=== PATIENT | female | born 1995 | race Caucasian/White ===

== ENCOUNTER 2020-07-15 20:10 | Emergency (ER) | payer OTHER, MEDICAID, SELFPAY ==
[2020-07-15 21:00] VITALS: BP 113/80; PULSE 78; RESP 18; TEMP 36.5; O2SAT 100
[2020-07-15 21:16] VITALS: BP 118/72; PULSE 72; RESP 18; TEMP 36.6; O2SAT 99
--- NOTE | 2020-07-15 21:52 | ED.DENTAL ---
HPI - Dental/Oral General Chief complaint: Dental/Oral Stated complaint: swollen face Time Seen by Provider: 07/15/20 21:52 Source: patient Mode of arrival: ambulatory Limitations: no limitations History of Present Illness HPI Narrative: Patient is a 25-year-old female who presents for evaluation of right-sided tooth pain. Pain is dull, aching in nature traveling into her right cheek. No associated redness or swelling. She struggles with numerous dental caries, states she is not from the area but has had pain over the past 3 days. Denies current fever or chills. She is able to swallow. Denies any neck pain or swelling. Related Data Allergies Allergy/AdvReac Type Severity Reaction Status Date / Time cephalexin Allergy Severe Anaphylaxis Verified 07/15/20 21:26 dicyclomine [From Bentyl] Allergy Rash Verified 07/15/20 21:26 ibuprofen Allergy Anaphylaxis Verified 07/15/20 21:26 ketorolac [From Toradol] Allergy Hives Verified 07/15/20 21:26 latex Allergy Rash Verified 07/15/20 21:26 tramadol Allergy Hives Verified 07/15/20 21:26 Review of Systems Review of Systems: Narrative: CONSTITUTIONAL: Denies fever CARDIOVASCULAR: Denies chest pain RESPIRATORY: Denies cough or dyspnea. GASTROINTESTINAL: Denies abdominal pain SKIN: Denies rash MUSCULOSKELETAL: Denies back pain NEUROLOGIC: Denies headache PMFSH Past Medical History Medical History (Updated 07/15/20 @ 22:43 by Theresa Ferrer MD) No pertinent past medical history Surgical History Surgical History (Updated 07/15/20 @ 22:43 by Theresa Ferrer MD) H/O: hysterectomy Social History Social History (Updated 07/15/20 @ 22:43 by Theresa Ferrer MD) Smoking status: Current every day smoker Tobacco type: cigarettes Alcohol intake: current Substance use: former Living arrangements: with family Gender identity (if verbalized by the patient): Female Exam Narrative: Exam Narrative: GENERAL: Awake, alert, conversant HEAD: Normocephalic, atraumatic. EYES: PERRLA and EOMI. ENT: Nares clear, no rhinorrhea or epistaxis. Mucous membranes moist. Numerous dental caries. No trismus. Uvula is midline. No abscess identified. Gingiva are not bleeding. Mild gingival edema. No evidence of necrosis. NECK: Supple. No neck edema. CHEST: No respiratory distress, breathing even and non labored HEART: Regular rate, sinus rhythm ABDOMEN:Non distended, non tender EXTREMITIES: Normal range of motion. No edema. SKIN: Warm, dry, no rash. NEURO:No focal deficits. Alert and oriented x3 Course Vital Signs Vital signs: Vital Signs Temperature 36.5 C 07/15/20 21:00 Pulse Rate 78 07/15/20 21:00 Respiratory Rate 18 07/15/20 21:00 Blood Pressure 113/80 07/15/20 21:00 Pulse Oximetry 100 07/15/20 21:00 Temperature 36.6 C 07/15/20 21:16 Pulse Rate 72 07/15/20 21:16 Respiratory Rate 18 07/15/20 21:16 Blood Pressure 118/72 07/15/20 21:16 Pulse Oximetry 99 07/15/20 21:16 MDM - Dental/Oral MDM Narrative Medical decision making narrative: Patient's pain is consistent with dental caries. At the time of assessment there are no signs of systemic illness, no focal signs of space-occupying abscess or lesions, no signs of Pasha angina or other concerning retropharyngeal infection. The patient is controlling her secretions well without signs of airway compromise. Patient is thought reasonable for outpatient follow-up with dental evaluation. Patient given oral antibiotics and medication for analgesia. Differential Diagnosis Differential diagnosis: Likely gingival abscess, dental caries, toothache, dental abscess, fracture of tooth and aphthous ulcer Discharge Plan Discharge Clinical Impression: Toothache, Dental caries Patient Disposition: Home, Self-Care Condition: Stable Instructions: Antibiotic Form, Toothache (ED) Additional Instructions: You have evidence of an early tooth infection. Please contact your dentist for foll
[2020-07-15] MEDS: CLINDAMYCIN HCL 150 MG CAP 300 MG PO (22:48)
[2020-07-15] MEDS: oxyCODONE/ACETAMINOPHEN (*CRX) 5-325 MG TABLET 1 TABLET PO (22:49)
[2020-07-15 22:56] VITALS: BP 113/60; PULSE 68; RESP 16; TEMP 36.6; O2SAT 99
== END 2020-07-15 22:55 | disposition home or self-care (01) ==
PROVIDERS: Emergency Provider Emergency Medicine
DX: K02.9 Dental caries, unspecified (principal); F17.210 Nicotine dependence, cigarettes, uncomplicated
CPT/HCPCS: 99283; A9270